=== PATIENT | female | born 1995 | race Caucasian/White ===

== ENCOUNTER 2021-02-22 08:49 | Outpatient (RCR) | payer BC, SELFPAY ==
[2021-02-22 08:58] VITALS: BMI 44.6
== END 2021-03-10 11:24 | disposition home or self-care (01) ==
LOC: ANHDMC 08:49
PROVIDERS: PCP Obstetrics & Gynecology; Visit Provider Obstetrics & Gynecology
DX: O09.90 Supervision of high risk pregnancy, unspecified, unspecified trimester (principal); E66.01 Morbid (severe) obesity due to excess calories; Z3A.00 Weeks of gestation of pregnancy not specified; Z71.3 Dietary counseling and surveillance
CPT/HCPCS: 97802

== ENCOUNTER 2021-03-16 10:21 | Outpatient (CLI) | payer BC, SELFPAY ==
[2021-03-16 11:45] LABS: Basophils Percent Auto 0.3 % (0.2-1.2); Eosinophils Absolute Auto 0.2 K/mm3 (0-0.3); Eosinophils Percent Auto 1.7 % (0-4.4); Hematocrit 37.4 % (37.0-47.0); Hemoglobin 12.7 g/dL (12.0-15.0); Immature Granulocyte Absolute 0.07 K/mm3 (0.00-0.031); Immature Granulocyte Percent A 0.6 % (0-0.5); Lymphocytes Absolute Auto 2.16 K/mm3 (0.9-3.2); Lymphocytes Percent Auto 18.5 % (18.3-44.2); Mean Corpuscular Hemoglobin 29.5 pg (26-34); Mean Corpuscular Volume 86.8 fl (80-100); Mean Platelet Volume 10.6 fl (7.4-10.4); Monocytes Absolute Auto 0.5 K/mm3 (0.1-0.6); Monocytes Percent Auto 4.6 % (2.6-8.5); Neutrophils Absolute Auto 8.7 K/mm3 (1.3-6.7); Neutrophils Percent Auto 74.3 % (45.5-73.1); Platelet Count Result 221 k/mm3 (150-375); Red Blood Count 4.31 M/mm3 (4.2-5.4); Red Cell Distribution Width 12.9 % (11.5-14.5); White Blood Count 11.7 K/mm3 (4.5-10.0)
[2021-03-16 11:54] LABS: Glucose 1 Hour PP 50gm Dose 174 mg/dL
[2021-03-16 13:27] LABS: Vitamin D 25 Hydroxy < 12.8 ng/mL
[2021-03-19 13:09] LABS: Varicella IgG Antibody <135.00 Index (>=165.00)
[2021-03-23 18:40] LABS: Hematocrit 39.5 % (35.0-45.0); Hemoglobin 12.7 g/dL (11.7-15.5); MCH 29.7 pg (27.0-33.0); MCV 92.4 FL (80.0-100.0); RDW 14.1 % (11.0-15.0); Red Blood Cell Count 4.27 Mill/uL (3.80-5.10)
== END 2021-03-16 10:22 | disposition home or self-care (01) ==
LOC: ANHLAB 10:23
PROVIDERS: PCP Obstetrics & Gynecology; Visit Provider Obstetrics & Gynecology
DX: Z34.90 Encounter for supervision of normal pregnancy, unspecified, unspecified trimester (principal)
CPT/HCPCS: 36415; 82306; 82947; 83021; 84443; 85025; 86787

== ENCOUNTER 2021-04-20 15:30 | Outpatient (RCR) | payer BC, SELFPAY | END 2021-06-13 09:58 | disposition home or self-care (01) | LOC: ANHOBOP 15:30 | PROVIDERS: PCP Obstetrics & Gynecology; Visit Provider Obstetrics & Gynecology | DX: O24.419 Gestational diabetes mellitus in pregnancy, unspecified control (principal); Z3A.32 32 weeks gestation of pregnancy | CPT/HCPCS: 59025 ==

== ENCOUNTER 2021-04-26 09:34 | Outpatient (CLI) | payer BC, SELFPAY ==
[2021-04-26 10:00] LABS: Basophils Percent Auto 0.2 % (0.2-1.2); Eosinophils Absolute Auto 0.2 K/mm3 (0-0.3); Hematocrit 36.3 % (37.0-47.0); Hemoglobin 12.4 g/dL (12.0-15.0); Immature Granulocyte Absolute 0.06 K/mm3 (0.00-0.031); Immature Granulocyte Percent A 0.5 % (0-0.5); Lymphocytes Absolute Auto 1.99 K/mm3 (0.9-3.2); Lymphocytes Percent Auto 17.5 % (18.3-44.2); Mean Corpuscular HGB Conc 34.2 g/dl (32-36); Mean Corpuscular Hemoglobin 29.2 pg (26-34); Mean Corpuscular Volume 85.6 fl (80-100); Mean Platelet Volume 10.6 fl (7.4-10.4); Monocytes Absolute Auto 0.9 K/mm3 (0.1-0.6); Monocytes Percent Auto 7.6 % (2.6-8.5); Neutrophils Absolute Auto 8.2 K/mm3 (1.3-6.7); Neutrophils Percent Auto 72.2 % (45.5-73.1); Platelet Count Result 211 k/mm3 (150-375); Red Blood Count 4.24 M/mm3 (4.2-5.4); Red Cell Distribution Width 12.4 % (11.5-14.5); White Blood Count 11.4 K/mm3 (4.5-10.0)
[2021-04-26 10:50] LABS: HIV 1/2 Ab P24 Ag Result Negative (Negative)
[2021-04-26 18:23] LABS: Rapid Plasma Reagin Non-Reactive (NonReactive)
== END 2021-04-26 09:35 | disposition home or self-care (01) ==
PROVIDERS: PCP Nurse Practitioner; Visit Provider Obstetrics & Gynecology
DX: Z34.90 Encounter for supervision of normal pregnancy, unspecified, unspecified trimester (principal)
CPT/HCPCS: 36415; 85025; 86592; 86703; G0432

== ENCOUNTER 2021-05-08 12:07 | Observation (INO) | payer BC, SELFPAY ==
[2021-05-08 12:32] VITALS: BP 122/55; PULSE 78
--- NOTE | 2021-05-08 12:45 | OBADM ---
This patient, Scotty Webb, admitted to the OB room OB Post 115 for observation. Patient/family oriented to hospital policies and general routines including ID bracelet, bed and alarms, visiting hours, pain management, procedures, bathroom and other care routines, personal items, smoking policy, room service/diet, and visiting hours. Patient/Family are encouraged to report perceived risks to care and to ask questions if they do not understand what they are told or what they should do.
[2021-05-08 12:46] VITALS: BP 118/54; PULSE 80
--- NOTE | 2021-05-08 13:25 | PC.NURSE ---
Dr Whitman notified of adm c/o cramping and swelling, sve being closed. Orders received.
[2021-05-08 13:28] VITALS: BMI 49.6
[2021-05-08] MEDS: NIFEdipine 10 MG CAPSULE PO (13:39)
[2021-05-08 14:04] LABS: Add Urine Microscopic? YES; Appearance Urine Cloudy (Clear); Bacteria Urine 3+ /hpf; Bilirubin Urine Negative (Negative); Blood Urine Negative (Negative); Color Urine Yellow (Yellow); Glucose Urine UA Negative (Negative); Ketones Urine 2+ mg/dL (Negative); Leukocyte Esterase Ur Trace LEU/UL (NEGATIVE); Mucus Urine Rare /lpf; Nitrate Urine Negative (Negative); Protein Urine 1+ mg/dL (Negative); Specific Grav Ur 1.016 (1.001-1.035); Squamous Epithelial Cell Urine Many /hpf (Few)
[2021-05-08 15:00] VITALS: RESP 20; TEMP 36.7
--- NOTE | 2021-06-23 10:22 | P.PNOB_ITS ---
OB - Triage/Final Diagnosis Visit Information Comments/Additional reasons for admission: I have assessed the risk for this patient, Scotty Webb, and determined that she would benefit from observation care. Evaluation Laboratory results: Laboratory Tests 05/08/21 13:41 Urine Color Yellow Urine Appearance Cloudy H Urine pH 6.0 Ur Specific [place] 1.016 Urine Protein 1+ H Urine Glucose (UA) Negative Urine Ketones 2+ H Ur Blood (Man) Negative Urine Nitrate Negative Urine Bilirubin Negative Urine Urobilinogen 2.0 H Ur Leukocyte Esterase Trace H Urine RBC 3-5 H Urine WBC 7-9 H Ur Squamous Epith Cells Many H Urine Bacteria 3+ H Urine Mucus Rare Final Diagnosis (1) Threatened labor: Code(s): O47.9 - False labor, unspecified Status: Acute
== END 2021-05-08 15:55 | disposition home or self-care (01) ==
PROVIDERS: Admitting Provider Obstetrics & Gynecology; PCP Nurse Practitioner; Visit Provider Obstetrics & Gynecology
DX: O47.9 False labor, unspecified (principal); Z3A.00 Weeks of gestation of pregnancy not specified
CPT/HCPCS: 81001; 87086; 87088; A9270; G0378; G0379

== ENCOUNTER 2021-05-25 14:15 | Observation (INO) | payer BC, SELFPAY ==
[2021-05-25 14:30] VITALS: BMI 48.7
--- NOTE | 2021-05-25 16:26 | OBADM ---
This patient, Scotty Webb, admitted to the OB room OB Post 113 for observation. Patient/family oriented to hospital policies and general routines including ID bracelet, bed and alarms, visiting hours, pain management, procedures, bathroom and other care routines, personal items, smoking policy, room service/diet, and visiting hours. Patient/Family are encouraged to report perceived risks to care and to ask questions if they do not understand what they are told or what they should do.
--- NOTE | 2021-05-29 10:25 | PM.OBTRLD ---
OB - Triage/Final Diagnosis Visit Information Comments/Additional reasons for admission: I have assessed the risk for this patient, Scotty Webb, and determined that she would benefit from observation care. Final Diagnosis (1) Antepartum variable deceleration: Code(s): O36.8390 - Maternal care for abnormalities of the heart rate or rhythm, unspecified trimester, not applicable or unspecified Status: Acute
== END 2021-05-25 16:25 | disposition home or self-care (01) ==
PROVIDERS: Admitting Provider Obstetrics & Gynecology; PCP Nurse Practitioner; Visit Provider Obstetrics & Gynecology
DX: O36.8390 Maternal care for abnormalities of the fetal heart rate or rhythm, unspecified trimester, not applicable or unspecified (principal); Z3A.00 Weeks of gestation of pregnancy not specified
CPT/HCPCS: G0378; G0379

== ENCOUNTER 2021-06-12 11:25 | Inpatient (IN) | payer BC, SELFPAY ==
[2021-06-12] VITALS (18 sets, daily range): BP systolic 118–145; BP diastolic 60–86; PULSE 72–92; TEMP 36.2–36.7
[2021-06-12 14:11] LABS: Basophils Percent Auto 0.3 % (0.2-1.2); Eosinophils Absolute Auto 0.2 K/mm3 (0-0.3); Eosinophils Percent Auto 2.3 % (0-4.4); Hematocrit 43.4 % (37.0-47.0); Hemoglobin 14.2 g/dL (12.0-15.0); Immature Granulocyte Absolute 0.05 K/mm3 (0.00-0.031); Immature Granulocyte Percent A 0.5 % (0-0.5); Lymphocytes Absolute Auto 1.89 K/mm3 (0.9-3.2); Lymphocytes Percent Auto 19.5 % (18.3-44.2); Mean Corpuscular HGB Conc 32.7 g/dl (32-36); Mean Corpuscular Volume 85.6 fl (80-100); Mean Platelet Volume 10.9 fl (7.4-10.4); Monocytes Absolute Auto 0.6 K/mm3 (0.1-0.6); Monocytes Percent Auto 6.1 % (2.6-8.5); Neutrophils Absolute Auto 6.9 K/mm3 (1.3-6.7); Neutrophils Percent Auto 71.3 % (45.5-73.1); Platelet Count Result 206 k/mm3 (150-375); Red Blood Count 5.07 M/mm3 (4.2-5.4); Red Cell Distribution Width 12.8 % (11.5-14.5); White Blood Count 9.7 K/mm3 (4.5-10.0)
[2021-06-12] MEDS: LACTATED RINGERS 1,000 ML 125 ML IV CONT ×2 (14:17→22:59)
[2021-06-12] MEDS: AMPICILLIN 2 GM/NS 100 ML 2 GM/100 ML BAG IVPB (14:18)
--- NOTE | 2021-06-12 14:22 | P.PNAN_ITS ---
Anes - Eval Pre Procedure Procedure: Labor epidural Date/Time: 06/12/21 14:22 Surgeon: soco Pre Op Diagnosis: Contractions Patient Data Age: 25 Gender: F Height: Weight: Last Vital Signs Temp 36.2 C L 06/12/21 14:20 Pulse 84 06/12/21 14:03 BP 118/60 06/12/21 14:03 Allergies Allergy/AdvReac Type Severity Reaction Status Date / Time No Known Allergies Allergy Verified 06/09/21 13:28 Home Medications Medication Instructions Recorded Confirmed Type acetaminophen 325 mg capsule 325 mg PO Q6H PRN 02/14/21 06/02/21 History calcium polycarbophil 625 mg tablet 1,250 mg PO DAILY 02/14/21 06/02/21 History prenat.vits,rachid,izz-ggjr-gcebi 1 tablet PO DAILY 03/09/21 06/02/21 History Laboratory Tests 06/12/21 06/12/21 14:00 14:00 WBC 9.7 K/mm3 K/mm3 (4.5-10.0) RBC 5.07 M/mm3 M/mm3 (4.2-5.4) Hgb 14.2 g/dL g/dL (12.0-15.0) Hct 43.4 % % (37.0-47.0) MCV 85.6 fl fl (80-100) MCH 28.0 pg pg (26-34) MCHC 32.7 g/dl g/dl (32-36) RDW 12.8 % % (11.5-14.5) Plt Count 206 k/mm3 k/mm3 (150-375) MPV 10.9 fl H fl (7.4-10.4) Immature Gran % (Auto) 0.5 % % (0-0.5) Neut % (Auto) 71.3 % % (45.5-73.1) Lymph % (Auto) 19.5 % % (18.3-44.2) [place] % (Auto) 6.1 % % (2.6-8.5) Eos % (Auto) 2.3 % % (0-4.4) Baso % (Auto) 0.3 % % (0.2-1.2) Lymph # (Auto) 1.89 K/mm3 K/mm3 (0.9-3.2) [place] # (Auto) 0.6 K/mm3 K/mm3 (0.1-0.6) Eos # (Auto) 0.2 K/mm3 K/mm3 (0-0.3) Baso # (Auto) 0.0 K/mm3 K/mm3 (0.0-0.1) Abs Immat Gran (auto) 0.05 K/mm3 H K/mm3 (0.00-0.031) Absolute Neuts (auto) 6.9 K/mm3 H K/mm3 (1.3-6.7) Absolute Nucleated RBC 0.0 K/mm3 K/mm3 (0.0-0.012) Nucleated RBC % 0.0 % % (0.0-0.2) RPR Pending Patient hx anesthesia problems: none Family hx anesthesia problems: none [facility] Past Medical History Medical History Anxiety Asthma GERD (gastroesophageal reflux disease) History of PCOS Migraine Family History Family History Mother Alcohol abuse Depression Grandparent Breast cancer Diabetes mellitus Hypertension Heart disease Social History Social History Smoking status: Former smoker Smoking end date: 08/25/20 Alcohol intake: never Substance use: former Last use: LAST TIME AT 18 WEEKS OF PREG Spiritual care concerns: No Exam Day of Procedure 06/12/21 14:22 Patient weight: normal Lungs: clear to auscultation and normal air movement Airway: Mallampati scale Neurological: alert and oriented
--- NOTE | 2021-06-12 14:24 | LDADM ---
This patient, Scotty Webb, was admitted to Labor/Delivery/Recovery 106 on 06/12/21 at 11:25. Plans for labor, pain management and were discussed with patient. Patient/family oriented to hospital policies and general routines including ID bracelet, bed and alarms, visiting hours, pain management, procedures, bathroom and other care routines, personal items, smoking policy, room service/diet and guest tray routines, security routines, and visiting hours. Patient/Family are encouraged to report perceived risks to care and to ask questions if they do not understand what they are told or what they should do. See OBIX for further documentation.
[2021-06-12] MEDS: OXYTOCIN 30 UNITS/NS 500 ML 30 UNITS/500 ML BAG 6 UNITS IV CONT (14:49)
[2021-06-12 16:02] LABS: Amphetamine Screen Urine Negative (Negative); Barbiturate Screen Urine Negative (Negative); Benzodiazepines Screen Urine Negative (Negative); Cannabinoid Screen Urine Negative (Negative); Cocaine Screen Urine Negative (Negative); Methadone Screen Urine Negative (Negative); Opiate Screen Urine Negative (Negative); Phencyclidine Screen Urine Negative (Negative)
[2021-06-12 17:23] LABS: Glucose Point of Care 124 mg/dl (65-105)
[2021-06-12] MEDS: AMPICILLIN 1 GM/NS 50 ML 1 GM/50 ML BAG IVPB ×2 (18:54→22:57)
[2021-06-12 18:57] LABS: Glucose Point of Care 78 mg/dl (65-105)
[2021-06-12] MEDS: CALCIUM CARBONATE (TUMS) 500 MG (200 MG ELEMENTAL) PO (21:00)
--- NOTE | 2021-06-12 22:33 | PM.IMHP ---
H&P: HPI History of Present Illness Date/Time: 06/12/21 22:33 Patient at 40 weeks today with an EDC 06/12/21 established by an 8 week 4 day ultrasound. It was not consistent with her periods which were irregular. Subsequent ultrasounds consistent with the EDC. PNC significant for diet control gestational diabetes though she has not been mostly compliant with bringing in the recordings of her blood sugars consistently. She has brought in her blood sugar readings once and they appeared controlled. She stated that most of her sugars have been in the normal range for fasting and postprandial. She did mention today that had two elevated postprandial after eating a high carb meal. The rest were normal. She states her fastings are usually in the 70s.She has been getting surveillance. She presented to L and D today with complaints of contractions starting this morning and questionable leaking. On L and D her cervix was 3 and did not change, she had irregular ctx and SROM check negative. I recommend induction of labor at term and gestational diabetes. Ultrasounds for growth have shown EFW appropriate for gestational age. History of marijuana use early prior . Chief Complaint: Induction of labor. Review of Systems Review of Systems: All systems reviewed & are unremarkable except as noted in HPI and below Constitutional: Constitutional: Reports no additional constitutional complaints and Denies headache(s) Eyes: Eyes: Denies spots in vision ENT: Reports system reviewed and no additional complaints, except as documented and Denies headache(s) Cardiovascular: Cardiovascular: Denies chest pain and Denies dyspnea Respiratory: Respiratory: Denies dyspnea Gastrointestinal: Gastrointestinal: Reports no additional gastrointestinal complaints Genitourinary: Genitourinary: Reports amenorrhea Musculoskeletal: Musculoskeletal: Reports no additional musculoskeletal complaints Integumentary/Breasts: Skin/Breast: Denies breast mass and Denies rash Neurologic: Denies headache(s) Psychiatric: Psychiatric: Reports no additional psychiatric complaints [facility] Past Medical History Medical History Anxiety Asthma GERD (gastroesophageal reflux disease) History of PCOS Migraine Family History Family History Mother Alcohol abuse Depression Grandparent Breast cancer Diabetes mellitus Hypertension Heart disease Social History Social History Smoking status: Former smoker Tobacco type: cigarettes Smoking end date: 08/25/20 Additional smoking assessment comments: also smoked marijuana for morning sickness but quit. Alcohol intake: never Substance use: former Last use: LAST TIME AT 18 WEEKS OF PREG Spiritual care concerns: No Meds Home Medications and Allergies Home Medications Medication Instructions Recorded Confirmed Type acetaminophen 325 mg capsule 325 mg PO Q6H PRN 02/14/21 06/02/21 History calcium polycarbophil 625 mg tablet 1,250 mg PO DAILY 02/14/21 06/02/21 History prenat.vits,rachid,rjs-[id number]-ejzdn 1 tablet PO DAILY 03/09/21 06/02/21 History Allergies Allergy/AdvReac Type Severity Reaction Status Date / Time No Known Allergies Allergy Verified 06/09/21 13:28 Vital Signs Vital Signs - 24 hr 06/12/21 14:03 06/12/21 14:20 06/12/21 15:01 Temperature 97.2 F L Pulse Rate 84 86 Blood Pressure 118/60 123/72 06/12/21 16:01 06/12/21 16:05 06/12/21 17:05 Temperature 97.3 F L Pulse Rate 92 75 Blood Pressure 141/86 H 145/86 H 06/12/21 18:01 06/12/21 18:41 06/12/21 19:34 Temperature 98.1 F Pulse Rate 77 76 Blood Pressure 139/84 139/78 06/12/21 20:01 06/12/21 20:31 06/12/21 21:01 Temperature Pulse Rate 85 85 81 Blood Pressure 135/80 138/75 132/81 06/12/21 21:31 06/12/21 22:01 06/12/21 22:31 Te
[2021-06-12 23:22] LABS: Glucose Point of Care 73 mg/dl (65-105)
[2021-06-13] VITALS (211 sets, daily range): BP systolic 93–176; BP diastolic 43–111; PULSE 57–122; RESP 18; TEMP 36.2–37.2; O2SAT 92–100; BMI 50.1
[2021-06-13] MEDS: AMPICILLIN 1 GM/NS 50 ML 1 GM/50 ML BAG IVPB ×5 (03:11→19:10)
[2021-06-13 03:15] LABS: Glucose Point of Care 74 mg/dl (65-105)
[2021-06-13 07:20] LABS: Glucose Point of Care 70 mg/dl (65-105)
[2021-06-13] MEDS: DEXTROSE 5%/LACTATED RINGERS 1,000 ML 100 ML IV CONT ×2 (08:59→09:54)
--- NOTE | 2021-06-13 09:17 | PM.OBPNVD ---
OB - PN: Subj Subjective Date/time seen: 06/13/21 09:17 Contractions every 3-4, mild when picking up the contractions which is positional, FHT 125 Cat 1, cervix 2.5/70/-2, AROM clear. Attempted IUPC, did not place since she did not tolerate well. She will want epidural and will place then if she is not progressing. OB - PN: Obj Data Labs CBC & Chem 7: 06/12/21 14:00 Labs: Laboratory Results - last 24 hr 06/12/21 06/12/21 06/12/21 13:56 14:00 14:00 WBC 9.7 RBC 5.07 Hgb 14.2 Hct 43.4 MCV 85.6 MCH 28.0 MCHC 32.7 RDW 12.8 Plt Count 206 MPV 10.9 H Immature Gran % (Auto) 0.5 Neut % (Auto) 71.3 Lymph % (Auto) 19.5 [place] % (Auto) 6.1 Eos % (Auto) 2.3 Baso % (Auto) 0.3 Lymph # (Auto) 1.89 [place] # (Auto) 0.6 Eos # (Auto) 0.2 Baso # (Auto) 0.0 Abs Immat Gran (auto) 0.05 H Absolute Neuts (auto) 6.9 H Absolute Nucleated RBC 0.0 Nucleated RBC % 0.0 POC Capillary Glucose 124 H Urine Opiates Screen Urine Methadone Screen Ur Barbiturates Screen Ur Phencyclidine Scrn Ur Amphetamine Screen U Benzodiazepines Scrn Urine Cocaine Screen U Cannabinoids Screen Blood Type A Positive Antibody Screen Negative 06/12/21 06/12/21 06/12/21 14:43 18:50 22:44 WBC RBC Hgb Hct MCV MCH MCHC RDW Plt Count MPV Immature Gran % (Auto) Neut % (Auto) Lymph % (Auto) [place] % (Auto) Eos % (Auto) Baso % (Auto) Lymph # (Auto) [place] # (Auto) Eos # (Auto) Baso # (Auto) Abs Immat Gran (auto) Absolute Neuts (auto) Absolute Nucleated RBC Nucleated RBC % POC Capillary Glucose 78 73 Urine Opiates Screen Negative Urine Methadone Screen Negative Ur Barbiturates Screen Negative Ur Phencyclidine Scrn Negative Ur Amphetamine Screen Negative U Benzodiazepines Scrn Negative Urine Cocaine Screen Negative U Cannabinoids Screen Negative Blood Type Antibody Screen 06/13/21 06/13/21 03:09 07:13 WBC RBC Hgb Hct MCV MCH MCHC RDW Plt Count MPV Immature Gran % (Auto) Neut % (Auto) Lymph % (Auto) [place] % (Auto) Eos % (Auto) Baso % (Auto) Lymph # (Auto) [place] # (Auto) Eos # (Auto) Baso # (Auto) Abs Immat Gran (auto) Absolute Neuts (auto) Absolute Nucleated RBC Nucleated RBC % POC Capillary Glucose 74 70 Urine Opiates Screen Urine Methadone Screen Ur Barbiturates Screen Ur Phencyclidine Scrn Ur Amphetamine Screen U Benzodiazepines Scrn Urine Cocaine Screen U Cannabinoids Screen Blood Type Antibody Screen OB - PN A/P Time Spent With Patient Time: Total time spent is greater than 50% in coordination of care (as documented) at patient's floor/unit and/or counseling patient:
[2021-06-13 11:09] LABS: Glucose Point of Care 159 mg/dl (65-105)
[2021-06-13] MEDS: LACTATED RINGERS 1,000 ML 125 ML IV CONT ×2 (11:16→19:10)
[2021-06-13 11:24] LABS: Rapid Plasma Reagin Non-Reactive (NonReactive)
[2021-06-13 15:15] LABS: Glucose Point of Care 66 mg/dl (65-105)
--- NOTE | 2021-06-13 16:36 | P.PNOB_ITS ---
OB - PN: Subj Subjective Date/time seen: 06/13/21 16:36 FHT 125-130 Cat 1, ctx q 2, cervix 6/90/-2, mild caput. Continue pitocin. OB - PN: Obj Data Labs CBC & Chem 7: 06/12/21 14:00 Labs: Laboratory Results - last 24 hr 06/12/21 06/12/21 06/12/21 13:56 14:00 18:50 POC Capillary Glucose 124 H 78 RPR Non-reactive 06/12/21 06/13/21 06/13/21 22:44 03:09 07:13 POC Capillary Glucose 73 74 70 RPR 06/13/21 06/13/21 11:06 15:10 POC Capillary Glucose 159 H 66 RPR OB - PN A/P Time Spent With Patient Time: Total time spent is greater than 50% in coordination of care (as docum ented) at patient's floor/unit and/or counseling patient:
[2021-06-13 17:09] LABS: Glucose Point of Care 75 mg/dl (65-105)
[2021-06-13 19:04] LABS: Glucose Point of Care 78 mg/dl (65-105)
[2021-06-13 21:05] LABS: Glucose Point of Care 87 mg/dl (65-105)
[2021-06-13] MEDS: ceFAZolin 3 GM/D5W 100 ML 100 ML IVPB (23:02)
[2021-06-14] VITALS (19 sets, daily range): BP systolic 109–134; BP diastolic 56–77; PULSE 65–102; RESP 15–18; TEMP 35.8–37.1; O2SAT 96–99
[2021-06-14] MEDS: KETOROLAC 30 MG/ML VIAL (*BKC) IV PUSH ×4 (00:02→21:14)
--- NOTE | 2021-06-14 00:49 | P.OPB_ITS ---
Procedure Note - Brief Procedure Note - Brief Date of procedure: 06/14/21 Pre-op diagnosis: Contractions Failure to descend Post-op diagnosis: same Procedure performed: Primary ceserean section Anesthesia: epidural Surgeon: Pedro Pablo Whitman MD Estimated blood loss (mL): 1,390 IV fluids (mL): 1,800 Drains: No Packing: No Pathology: yes (placenta and cord and cord blood) Complications: No immediate complications Condition: stable Disposition: floor Findings: Female infant, OP, 6lb 20z, normal fallopian tubes and ovaries. M econium stained light amniotic fluid.
--- NOTE | 2021-06-14 00:51 | PM.OBPNVD ---
OB - PN: Subj Subjective Date/time seen: 06/14/21 00:51 Patient pushed for one hour with good effort and contraction pattern and no change in station. Station remained at 0 after pushing. Caput noted. tracing with intermittent mild late decel, variability moderate. She was informed of diagnosis of failure to descend and recommendation for ceserean section and risk of continuing to push with no change. She was informed of risk of ceserean section. Questions answered. She agreed with primary cesearean section for failure to descend. OB - PN: Obj Data Labs CBC & Chem 7: 06/12/21 14:00 Labs: Laboratory Results - last 24 hr 06/12/21 06/13/21 06/13/21 14:00 03:09 07:13 POC Capillary Glucose 74 70 RPR Non-reactive 06/13/21 06/13/21 06/13/21 11:06 15:10 17:04 POC Capillary Glucose 159 H 66 75 RPR 06/13/21 06/13/21 19:01 20:57 POC Capillary Glucose 78 87 RPR OB - PN A/P Time Spent With Patient Time: Total time spent is greater than 50% in coordination of care (as documented) at patient's floor/unit and/or counseling patient:
[2021-06-14] MEDS: OXYTOCIN 30 UNITS/NS 500 ML 30 UNITS/500 ML BAG 125 UNITS IV CONT (01:27)
[2021-06-14] MEDS: DEXTROSE 5%/0.45% SOD CHL 1,000 ML 125 ML IV CONT ×2 (05:59→06:21)
--- NOTE | 2021-06-14 06:33 | PM.OBPNVD ---
OB - PN: Subj Subjective Date/time seen: 06/14/21 06:33 Patient comments: no complaints, pain well controlled, incisional pain and other (Lochia similar to menses. No N/V, hasn't had any po intake except ice/water) [place] baby status: doing well OB - PN: Obj Data Labs CBC & Chem 7: 06/12/21 14:00 Labs: Laboratory Results - last 24 hr 06/12/21 06/13/21 06/13/21 14:00 07:13 11:06 POC Capillary Glucose 70 159 H RPR Non-reactive 06/13/21 06/13/21 06/13/21 15:10 17:04 19:01 POC Capillary Glucose 66 75 78 RPR 06/13/21 20:57 POC Capillary Glucose 87 RPR OB - PN A/P Plan day: 1 (s/p C section, doing well) Plan: routine care Time Spent With Patient Time: Total time spent is greater than 50% in coordination of care (as documented) at patient's floor/unit and/or counseling patient: Time with patient: less than 15 minutes Exam Const: General: no acute distress Resp: Auscultation: clear to auscultation bilaterally Cardio: Rate: regular rate Rhythm: regular rhythm GI: Inspection: non-distended, incision (Intact without erythema, drainage, or induration) and other (Fundus firm and nontender at umbilicus) GI Palp: Yes abdominal tenderness (appropriate ) and Yes Soft to palpation Extrem: General: no calf tenderness and no edema
[2021-06-14] MEDS: MULTIVIT/MIN/PREN/FOL AC/IRON TABLET 1 TAB PO (10:05)
[2021-06-14] MEDS: DOCUSATE SODIUM 100 MG CAPSULE PO (10:06)
--- NOTE | 2021-06-14 10:51 | WPDANLDPN2 ---
Anes-Prog Note L&D Date/Time: 06/14/21 10:51 Comfortable throughout: section Neuraxial method: spinal Epidural/Spinal procedure site: clean & non-tender Neuro status: Neuro function grossly intact. Cardiovascular status: normal Respiratory status: normal Airway patency: baseline Mental status: baseline Post-Op hydration status: normal Vital Signs: Last Vital Signs Temp 35.8 C L 06/14/21 03:30 Pulse 65 06/14/21 03:30 Resp 15 06/14/21 03:30 BP 134/77 06/14/21 03:30 Pulse Ox 97 06/14/21 03:30 Pain score (VAS): 0 I/O: Intake & Output 06/13/21 06/14/21 06/14/21 23:59 07:59 15:59 Intake Total 1150 1400 Output Total 1890 128 Balance -740 1272 Post-procedural complaints: none Patient feedback: Patient satisfied with anesthetic care.
--- NOTE | 2021-06-14 10:51 | WPDANLDNPN2 ---
Anes-Prog Note L&D-Neuraxial Date/Time: 06/14/21 10:51 Neuraxial medications: intrathecal PF morphine Patient feedback: Patient satisfied with post-operative pain management.
--- NOTE | 2021-06-14 13:55 | PC.NURSE ---
Mother called out for assist with feeding, reporting has been bottle fed, this is the first time to breast. is able to freely thrust tongue past gum ridge and flange both lips. Skin is intact on both nipples, no redness and bruising noted. Discussed infant is accustom to large amounts of formula and may not be satisfied with smaller amounts of colostrum. Suggested to put infant to breast each feeding then supplement. Reviewed feeding cues, frequencies, duration of feedings, feeding elimination flow sheet, and signs of adequate intake. Demonstrated stimulation techniques to wake for feeding. Assisted with infant to breast. Reviewed positioning/alignment in football, holding breast in ?C? hold and guided asymmetrical latch on. Discussed rational for each. Within a few attempts, able to latch correctly. Infant nursed eagerly, with steady draws and occasional swallowing noted. Suggested mother stimulate while feeding to increase stimulate, increase intake and to assist with maintaining deep latch. Reviewed signs of a correct latch, effective nursing and suck swallow ratio. Infant would slip to shallow latch, mother reports tenderness. Demonstrated how to adjust latch more deeply while feeding. Mother reports she can feel change in latch and has no tenderness. Nipple care reviewed of lanolin after feedings, warm compresses as needed. Instructed mother to call out for RN assistance if she is unable to latch infant for feeding or she has discomfort with nursing.
--- NOTE | 2021-06-14 15:50 | PC.NURSE ---
Mother called out for assist with feeding. Assisted with to breast. Reviewed positioning/alignment in cross cradle, holding breast in ?U? hold and guided asymmetrical latch on. Discussed rational for each. Infant able to latch correctly. Infant nursed eagerly, with steady draws and frequent swallowing noted. Suggested mother stimulate while feeding to increase stimulate, increase intake and to assist with maintaining deep latch. Reviewed signs of a correct latch, effective nursing and suck swallow ratio. was able to maintain latch without discomfort to mother. Demonstrated how to adjust latch more deeply while feeding. Nipple care reviewed of lanolin after feedings, warm compresses as needed. Instructed mother to call out for RN assistance if she is unable to latch infant for feeding or she has discomfort with nursing.
--- NOTE | 2021-06-14 16:33 | W.PM.PROC2 ---
Procedure Note - Detailed Date of Procedure 06/14/21 Pre-op Diagnosis failure to descend Post-op Diagnosis same Procedure Performed primary low-transverse section. Surgeon Pedro Pablo Whitman MD Anesthesia epidural Indications Patient is a 25-year-old admitted for medical induction of labor on . At that time she had come in for labor check and her cervix had not changed she was called at 3 cm and had not change. Her course is significant for gestational diabetes and she was recommended for induction of labor at 39-40 weeks she agreed to stay for induction of labor. Pitocin was started. She had irregular contractions on the morning of 06/13 she had assisted rupture of membranes. She was continued on Pitocin for induction. She did get an IUPC placed to better monitor the contractions and adjust her Pitocin. Her dilation was progressing throughout labor. She did dilate to complete. Initially with pushing she did have some deep variable decelerations. Variability was good after recovery. She was having good pushing effort. there was a 10 minutes time. Where she did not push due to pain. Her epidural was re-dosed. She then resumed pushing after this during her pushing she has intermittent late this onset Variables. She was afebrile. She pushed for an hour and there was no change in her station which was 0 and caput was present. She was informed of her diagnosis of failure to descend and risk of continuing to attempt pushing discussed risk of section and she agreed to the primary section for failure to descend. Findings Female infant 6 lb 2 oz in OP position then meconium noted with entry in the amniotic cavity. Normal fallopian tubes and ovaries bilaterally. small mid pelvis noted. Description of Procedure After informed consent, risks and benefits of the procedure was discussed with the patient. The patient was taken to the operating room where she was placed in the dorsal lithotomy position with leftward tilt. Her epidural was re-dosed and which was found to be adequate, she was then prepped and draped in the usual sterile fashion. A Pfannenstiel skin incision was made with a scalpel and carried through to the underlying layer of fascia. The fascia was then nicked in the midline, extending bilaterally with Del Castillo scissors.. The fascia was dissected off the rectus muscles Superiorly and inferiorly bluntly and using cautery. The rectus muscles were in the midline, and peritoneum was identified, entered bluntly. The pelvic organs were visualized. The bladder blade was then inserted. The uterine incision was then made 3 cm above the vesicouterine peritoneum reflection with the scalpel and extended with bilateral index fingers in a crescent-shaped fashion. The amniotic cavity was entered. Meconium stain fluid was noted. the head which was in the OP position was delivered. The rest of the infant was delivered.The cord was clamped and cut. The infant was then handed off to the awaiting pediatric staff. The placenta was then Delivered manually. The uterine cavity was sponge curetted. there was noted to be an inferior laceration of the incision in the middle of the incision and this was closed with 0 Vicryl. This was done in a running locking fashion. The laceration did not extend to the bladder. The rest of the of the uterine incision was closed in a running locking fashion with 0 Vicryl a 2nd imbricating stitch of 0 Vicryl was used hemostasis was noted. The bladder was then filled with methylene blue-stained fluid and no methylene blue stained fluid was noted in the pelvis. The uterine tone had improved with uterine massage and IV Pitocin. The posterior cul-de-sac was irrigated. The pericolic gutters were irrigated. The uterus was placed back into the abdomen the incision inspected again and noted to be hemostatic. Interceed was placed over the incision horizontally and vertical
[2021-06-14] MEDS: HYDROcodone/acetaminophen (*CRX) 5-325 MG TABLET 1 TAB PO (21:22)
[2021-06-15 00:05] VITALS: O2SAT 99
[2021-06-15] MEDS: HYDROcodone/acetaminophen (*CRX) 5-325 MG TABLET 1 TAB PO ×4 (05:00→21:57)
[2021-06-15 05:53] LABS: Basophils Percent Auto 0.3 % (0.2-1.2); Eosinophils Absolute Auto 0.2 K/mm3 (0-0.3); Eosinophils Percent Auto 1.5 % (0-4.4); Hematocrit 30.7 % (37.0-47.0); Hemoglobin 9.9 g/dL (12.0-15.0); Immature Granulocyte Absolute 0.06 K/mm3 (0.00-0.031); Immature Granulocyte Percent A 0.5 % (0-0.5); Lymphocytes Absolute Auto 2.13 K/mm3 (0.9-3.2); Lymphocytes Percent Auto 16.5 % (18.3-44.2); Mean Corpuscular HGB Conc 32.2 g/dl (32-36); Mean Corpuscular Hemoglobin 27.6 pg (26-34); Mean Corpuscular Volume 85.5 fl (80-100); Mean Platelet Volume 11.1 fl (7.4-10.4); Monocytes Absolute Auto 0.8 K/mm3 (0.1-0.6); Monocytes Percent Auto 6.3 % (2.6-8.5); Neutrophils Absolute Auto 9.7 K/mm3 (1.3-6.7); Neutrophils Percent Auto 74.9 % (45.5-73.1); Platelet Count Result 202 k/mm3 (150-375); Red Blood Count 3.59 M/mm3 (4.2-5.4); Red Cell Distribution Width 12.9 % (11.5-14.5); White Blood Count 12.9 K/mm3 (4.5-10.0)
[2021-06-15 08:15] VITALS: PULSE 101; RESP 18; O2SAT 99
--- NOTE | 2021-06-15 08:20 | PC.NURSE ---
Mother called out for assist with feeding. Mother is tearful reporting she has made several attempts and unable to latch. Infant crying and fussy. Suggested mother give a few drops of formula to calm and then attempt. Assisted with to breast. Reviewed positioning/alignment in cross cradle, holding breast in ?U? hold and guided asymmetrical latch on. Discussed rational for each. able to latch correctly within a few attempts. Infant nursed eagerly, with steady draws and frequent swallowing noted. Suggested mother stimulate while feeding to increase stimulate, increase intake and to assist with maintaining deep latch. Reviewed signs of a correct latch, effective nursing and suck swallow ratio. was able to maintain latch without discomfort to mother. Demonstrated how to adjust latch more deeply while feeding. Nipple care reviewed of lanolin after feedings, warm compresses as needed. Mother will continue to supplement after each feeding by choice. Discussed initiating pumping today, mother has her pump from home and will call out when ready. Instructed mother to call out for RN assistance if she is unable to latch for feeding or she has discomfort with nursing.
[2021-06-15 08:55] VITALS: BP 124/66; PULSE 101; RESP 18; TEMP 36.9; O2SAT 99
[2021-06-15] MEDS: POLYSACCHARIDE IRON COMPLEX 150 MG CAPSULE PO ×2 (10:49→17:20)
[2021-06-15] MEDS: DOCUSATE SODIUM 100 MG CAPSULE PO (10:49)
[2021-06-15] MEDS: MULTIVIT/MIN/PREN/FOL AC/IRON TABLET 1 TAB PO (10:49)
[2021-06-15] MEDS: IBUPROFEN 600 MG TABLET PO ×2 (10:51→17:19)
--- NOTE | 2021-06-15 11:00 | PC.NURSE ---
Mother wishes to use her pump from home. Instructions given on breast pump care and usage, pumping schedule, nipple care, and collection and storage of breast milk. Encouraged [id number], breast massage and manual expression to stimulate supply. Assessed patient for correct flange size, placement and draw. Patient verbalizes and demonstrates understanding of instructions.
--- NOTE | 2021-06-15 17:36 | PC.NURSE ---
Patient viewed the discharge video Mother & Baby Care, The First Two Weeks . Patient was given the opportunity and encouraged to ask questions. Patient verbalized understanding of information shared and has been given the mother/baby guide for home reference.
[2021-06-15 21:45] VITALS: BP 122/72; PULSE 94; RESP 16; TEMP 36.6; O2SAT 97
[2021-06-16] MEDS: HYDROcodone/acetaminophen (*CRX) 5-325 MG TABLET 1 TAB PO ×2 (02:45→08:08)
[2021-06-16] MEDS: IBUPROFEN 600 MG TABLET PO ×2 (02:45→08:07)
[2021-06-16] MEDS: LANOLIN (LANSINOH) 7.5 GM CREAM 1 APPLIC TOPICAL (02:46)
--- NOTE | 2021-06-16 07:30 | PC.NURSE ---
PT introductions made and plan of care discussed per post op c section, pain management, breast feeding, daily care activities and pending discharge to home. PT received such instructions per one to one discussion, mom baby care guide and demonstration, No barriers to learning identified and both pt and fob received such instructions,. PT verbalized understanding of such care.
--- NOTE | 2021-06-16 08:03 | PM.OBPNVD ---
OB - PN: Subj Subjective Date/time seen: 06/16/21 08:03 Patient comments: no complaints, pain well controlled, tolerating diet, flatus present and other (Lochia less than menses. Ambulating and voiding without problems) baby status: doing well OB - PN: Obj Data Labs CBC & Chem 7: 06/15/21 05:00 OB - PN A/P Plan day: 3 (s/p section, doing well and ready to be discharged home) Plan: routine care, discharge home and other (Follow up in office in 2 weeks) Time Spent With Patient Time: Total time spent is greater than 50% in coordination of care (as documented) at patient's floor/unit and/or counseling patient: Time with patient: less than 15 minutes Exam Const: General: no acute distress Resp: Auscultation: clear to auscultation bilaterally Cardio: Rate: regular rate Rhythm: regular rhythm GI: Inspection: non-distended, incision (Intact without erythema, drainage, or induration) and other (Fundus firm and nontender below umbilicus) GI Palp: Yes abdominal tenderness (appropriate) and Yes Soft to palpation Extrem: General: no edema
--- NOTE | 2021-06-16 08:04 | PM.OBDSVD ---
DS: Admitting Diagnosis Admitting Diagnosis Induction of labor, gestational diabetes DS: Discharge Diagnosis Discharge Diagnosis (1) delivery delivered: Code(s): O82 - Encounter for delivery without indication Status: Acute OB - DS: Summary OB Procedures : None OB Procedures Intrapartum: low cervical, transverse OB Procedures: : None Peripartum Data Delivery Method: Section Procedures: Procedures Operation Date: 06/13/21 23:00 Actual Procedure Side Surgeon p Section Bilateral Pedro Pablo Whitman MD complications: none Status at Discharge Functional status at discharge: independent ambulation Overall status at discharge: patient is progressing back to baseline Time Spent with Patient Time attestation: Total time spent providing and/or coordinating discharge services: Time spent: Less than 30 minutes DS: Data Data Completed and Pending Pending studies at discharge: Pending at discharge 06/13/21 23:28 Surgical [PTH] Routine Discharge Plan Discharge Attending physician on discharge: Pedro Pablo Whitman Discharging Clinician: Faye Zurita Patient Disposition: Home, Self-Care Activity: may shower and pelvic rest Diet: regular Wound Care Instructions: incision open to air Discharge Instructions: Education: Mom and Baby Guide Given to: Follow-Up: Call your delivering provider's office for an appointment to be seen in: Mom and baby should come to the [facility] for the follow-up appointment. Appointment Date/Time: at SaturdayJune 19 @ 1100 What to expect at your follow-up visit: Blood pressure check Call [phone] if you are unable to keep your appointment time. BREAST CARE: * Wear a snug supportive bra. * For engorgement discomfort: Breast Feeding: * Apply warm moist washcloths * Express milk as needed to relieve engorgement * Wear loose clothing Bottle Feeding: * May apply ice packs * For sore nipples: * Identify correct latch-on * Apply warm moist washcloths before and after nursing * Air dry nipples after nursing * May apply Lansinoh cream to nipples ABDOMINAL INCISION: (if applicable) * Allow incision to air dry * Do NOT use lotions for powders on your incision * When showering, allow soap and water to run over the incision, but do not wash incision PERINEAL CARE: * Until bleeding stops, use your lucille bottle after urinating * Change your pad frequently throughout the day * No tub baths until seen by your physician - You may shower ACTIVITY: * Rest as much as possible. * Do not exercise or lift anything heavier than your baby (such as laundry or other children.) * Avoid stairs or driving as much as possible. * Do not put anything into the vagina. No douching, tampons, or sexual activity until seen by physician. NOTIFY PHYSICIAN IF YOU HAVE ANY QUESTIONS OR IF ANY OF THE FOLLOWING SYMPTOMS OCCUR: * If your incision becomes red, swollen, or more painful than what you have experienced in the hospital. * If your vaginal bleeding becomes foul smelling. * If your vaginal bleeding becomes more heavy than a period or if your bleeding changes from pink to bright red. However, you may pass an occasional walnut-sized clot once or twice for the first week . * If you experience a sharp, shooting pain in you calves. * If you discover a hard, reddened area on your breast or if you experience flu-like symptoms. * If you have a fever of 100.4 or greater DIET: * Eat regular, well-balanced meals. * Drink plenty of fluids daily. If , drink to thirst. Patient Instructions: Antibiotic Form Stand Alone Forms: General Discharge Information Follow-up/Referrals: Pedro Pablo Whitman MD [Physician] - 2 Weeks Discharge Medications: New
[2021-06-16] MEDS: DOCUSATE SODIUM 100 MG CAPSULE PO (08:06)
[2021-06-16] MEDS: CALCIUM CARBONATE (TUMS) 500 MG (200 MG ELEMENTAL) PO (08:06)
[2021-06-16] MEDS: MULTIVIT/MIN/PREN/FOL AC/IRON TABLET 1 TAB PO (08:06)
[2021-06-16] MEDS: SIMETHICONE 80 MG TAB.CHEW PO ×2 (08:06→12:23)
[2021-06-16] MEDS: POLYSACCHARIDE IRON COMPLEX 150 MG CAPSULE PO (08:08)
[2021-06-16 08:10] VITALS: BP 104/62; PULSE 88; RESP 16; TEMP 36.5; O2SAT 100
[2021-06-16 08:15] VITALS: PULSE 88; RESP 16; O2SAT 100
--- NOTE | 2021-06-16 09:15 | PC.NURSE ---
Consult with pt., mother reports she continues to put to breast most feedings. is nursing eagerly with long draw and occasional swallowing noted. Mother feels she is more comfortable with independently latching to breast and getting infant to maintain latch. Mother will continue to supplement until her milk supply is well established and is consistent with effective nursing. Mother is pumping without difficulties or discomfort, she is now pumping small drops with each session. Mother voices concern with volume pumped, reviewed milk should transition in within a few days. Mother is able to independently latch infant with appropriate positioning/alignment. She denies any nipple discomfort, is feeding as required and waking infant to feed if needed. Infant has had several effective feedings followed with supplementation in the past 24 hours, and is currently meeting outcomes for weight, output, jaundice and feeding frequencies. Mother states she feels confident to continue current feeding plan of breast/bottle/ pump at home. Discussed to increase supplementation as desires, with increased supplement may not want to feed for 4 hours. Mother should continue to pump on infant feeding schedule and to increase time to 20 minutes. Reviewed signs infant may want to decrease supplementation, advised not to discontinue supplement until ICP, follow up or has a pre/post weight feeding evaluation. Reviewed transition to breast milk, signs of adequate intake, and engorgement/relief. Instructed to call ICP if intake/output less than required. Reviewed regular medications mother is taking. Information provided per [facility]. Reviewed community resources on the [employer] website and in the Mom/Baby guide. Information on outpatient services provided. Mother has no further questions at this time.
[2021-06-16] MEDS: HYDROcodone/acetaminophen (*CRX) 10-325 MG TABLET 1 TAB PO (12:23)
--- NOTE | 2021-06-16 12:45 | PC.NURSE ---
PT received discharge instructions per protocol and verbalized understanding of such instructions.
--- NOTE | 2021-06-16 13:12 | PC.NURSE ---
PT discharged to home ambulatory accompanied by spouse and to waiting car. Follow up appts confirmed
[2021-06-19 11:29] VITALS: BP 115/67; PULSE 93; RESP 20; TEMP 37.2; O2SAT 100
== END 2021-06-16 13:12 | disposition home or self-care (01) | DRG 788 ==
LOC: ANHOB2 06-16 11:57 → ANHLDR 06-19 15:20 → ANHOB2 06-19 15:20
PROVIDERS: Admitting Provider Obstetrics & Gynecology; PCP Nurse Practitioner; Visit Provider Obstetrics & Gynecology
PROC: 10907ZC Drainage of Amniotic Fluid, Therapeutic from Products of Conception, Via Natural or Artificial Opening (ICD-10-PCS; CPT 59514; principal; 2021-06-13 23:00)
DX: O24.420 Gestational diabetes mellitus in childbirth, diet controlled (principal); Z37.0 Single live birth; Z3A.40 40 weeks gestation of pregnancy; O99.824 Streptococcus B carrier state complicating childbirth; O99.52 Diseases of the respiratory system complicating childbirth; J45.909 Unspecified asthma, uncomplicated; O99.62 Diseases of the digestive system complicating childbirth; K21.9 Gastro-esophageal reflux disease without esophagitis; O99.344 Other mental disorders complicating childbirth; F41.9 Anxiety disorder, unspecified; O36.8330 Maternal care for abnormalities of the fetal heart rate or rhythm, third trimester, not applicable or unspecified; O32.4XX0 Maternal care for high head at term, not applicable or unspecified
CPT/HCPCS: 36415; 80307; 82948; 84112; 85025; 86592; 86850; 86900; 86901; 88307; A9270; J0131; J0290; J0690; J1100; J1885; J2274; J2405; J2590; J2704; J2795; J3010; J7120; J7121; Q9968

== ENCOUNTER 2021-06-29 12:13 | Emergency (ER) | payer BC, SELFPAY ==
--- NOTE | ~2021-06-29 | US_ITS ---
EXAMINATION: US guide abscess drainage DATE: 06/29/2021 18:20 INDICATION: Lower abdominal wall abscess. TECHNIQUE: The procedure including the risks, benefits, and alternatives was discussed with the patie nt. Risks discussed included bleeding including bleeding and infection. Oral and written consent were obtained. A timeout was performed to verify the patient's name, date of , and procedure to b e performed. The skin overlying the low anterior abdominal wall was prepped and draped in usual steri le fashion. Anesthetic was administered with 1% lidocaine subcutaneously. An 8.5 Fr catheter was in serted into the abdominal wall abscess by trocar technique. The metal stiffener and trocar needle wer e removed, and the pigtail tip was locked. Fluid was aspirated and sent for culture. The catheter was stitched to the skin with suture. There were no immediate complications. FINDINGS: Ultrasound images demonstrate the catheter within the low anterior abdominal wall abscess. 20 mL orange fluid was aspirated. IMPRESSION: 1. Successful ultrasound-guided abdominal wall abscess drainage. 2. 20 mL orange fluid was sent for aerobic and anaerobic cultures. Reviewed, dictated and finalized at location A.
--- NOTE | ~2021-06-29 | CT_ITS ---
EXAMINATION: CT abdomen pelvis w con DATE: 06/29/2021 14:04 INDICATION: Abdominal cellulitis TECHNIQUE: Computed tomography (CT) of the abdomen and pelvis was performed with 100 cc Omnipaque 350 intravenous contrast. Automated exposure control and iterative reconstruction technique were employe d. Exam dose: 1529.99 mGy-cm total exam DLP. COMPARISON: None. FINDINGS: The lung bases are clear. Heart size normal. No pericardial or pleural effusion. The liver, gallbladder, bile ducts, pancreas and pancreatic duct and adrenal glands appear normal. Th ere is mild splenomegaly. Spleen measures approximately 14.5 cm vertical dimension. No renal mass lesion is evident. There is minimal hydronephrosis of the kidneys. Normal caliber of th e abdominal aorta. No intraperitoneal or retroperitoneal or pelvic mass lesion or adenopathy or ascit es. The urinary bladder is distended. uterus is noted. There is mild fluid density in the endometrial cavity. Normal appendix. No bowel obstruction, bowel wall thickening, pneumatosis or intraperitoneal free air . Approximately 12.5 cm wide up to 2.2 cm anteroposterior dimension fluid collection is noted in the lo wer anterior pelvic wall, possibly hematoma or seroma. There is overlying skin thickening. There is s oft tissue stranding of the subcutaneous adipose tissues of the abdominal and particularly anterior p elvic wall. Included skeletal structures are unremarkable. IMPRESSION: Hematoma or seroma of the anterior pelvic wall Skin thickening and subcutaneous fat soft tissue infiltration of the abdominal and pelvic wall uterus Mild splenomegaly Reviewed, dictated and finalized at Location A. Reviewed, dictated and finalized at location B.
[2021-06-29 12:15] VITALS: BP 127/80; PULSE 84; RESP 18; TEMP 36.2; O2SAT 99
--- NOTE | 2021-06-29 12:27 | ED.ABDPAIN ---
HPI - Abdominal Pain General Chief Complaint: Wound/Laceration Stated Complaint: abd pain Time Seen by Provider: 06/29/21 12:26 History of Present Illness HPI narrative: Patient is a 25-year-old female who comes to the ED today with concern about a rash around her site. Patient reports that she had a on 06/13/2021. Since then she has had worsening pain and edema and redness around the incision site. She has been followed by her FRONT END ENGINEER, was started on Keflex on 06/20/2021. Clindamycin was added on 2 days ago. Last night she developed itching and what looks like hives in both ankles, she took some Benadryl and these are much improved. When she woke up this morning she noticed some blistering of the abdominal wound and worsening pain prompting her to come to the emergency room. She denies any fevers, vomiting or any systemic symptoms. Rates pain as 8/10 in severity. Still having vaginal bleeding since the , changing a pad about every 3 hours. Related Data Home Medications Medication Instructions Recorded Confirmed acetaminophen 325 mg capsule 325 mg PO Q6H PRN 02/14/21 06/24/21 calcium polycarbophil 625 mg tablet 1,250 mg PO DAILY 02/14/21 06/24/21 prenat.vits,rachid,gyp-baxc-ivefm 1 tablet PO DAILY 03/09/21 06/24/21 Allergies Allergy/AdvReac Type Severity Reaction Status Date / Time No Known Allergies Allergy Verified 06/29/21 12:20 Review of Systems Constitutional: Constitutional: Reports as per HPI, Denies fever(s), Denies night sweats and Denies weakness Cardiovascular: Cardiovascular: Denies chest pain, Denies edema, Denies leg edema, Denies dyspnea and Denies orthopnea Respiratory: Respiratory: Denies cough and Denies dyspnea Gastrointestinal: Gastrointestinal: Denies abdominal pain, Denies constipation, Denies diarrhea, Denies nausea and Denies vomiting Musculoskeletal: Musculoskeletal: Denies abnormal gait, Denies back pain, Denies numbness and Denies tingling Integumentary/Breasts: Skin/Breast: Reports wounds Comments: See HPI Neurologic: Denies Abnormal speech present, Denies abnormal gait, Denies numbness, Denies tingling and Denies weakness Psychiatric: Psychiatric: Denies homicidal ideation and Denies suicidal ideation [facility] Past Medical History Medical History Anxiety Asthma GERD (gastroesophageal reflux disease) History of PCOS Migraine Family History Family History Mother Alcohol abuse Depression Grandparent Breast cancer Diabetes mellitus Hypertension Heart disease Social History Social History Smoking status: Former smoker Tobacco type: cigarettes Smoking end date: 08/25/20 Additional smoking assessment comments: also smoked marijuana for morning sickness but quit. Alcohol intake: never Substance use: former Last use: LAST TIME AT 18 WEEKS OF PREG Gender identity (if verbalized by the patient): Female Spiritual care concerns: No Exam Narrative: Pleasant, no distress Const: General: cooperative, healthy appearing, comfortable, no acute distress, well developed, alert, awake and Physically active Orientation/consciousness: patient oriented x3 HENMT: Head: normal to inspection, normocephalic and atraumatic Ears: external ears normal General nose exam: Normal external nose present Eyes: Pupils: Equal, round and reactive pupils present EOM: EOMs intact bilaterally Neck: Neck: normal visual inspection Chest: Chest palpation & inspection: normal inspection of the chest and no tenderness Resp: Effort & Inspection: normal respiratory effort and able to speak in complete sentences Auscultation: clear to auscultation bilaterally Cardio: Rate: regular rate Rhythm: regular rhythm GI: Inspection: normal to inspection GI Palp: No abdominal tenderness Othe
[2021-06-29 12:34] VITALS: BP 126/69; PULSE 87; RESP 16; O2SAT 100
[2021-06-29 12:53] LABS: Basophils Absolute Auto 0.1 K/mm3 (0.0-0.1); Basophils Percent Auto 0.5 % (0.2-1.2); Eosinophils Absolute Auto 0.5 K/mm3 (0-0.3); Hematocrit 33.2 % (37.0-47.0); Hemoglobin 10.7 g/dL (12.0-15.0); Immature Granulocyte Absolute 0.03 K/mm3 (0.00-0.031); Immature Granulocyte Percent A 0.3 % (0-0.5); Lymphocytes Absolute Auto 2.17 K/mm3 (0.9-3.2); Lymphocytes Percent Auto 23.3 % (18.3-44.2); Mean Corpuscular HGB Conc 32.2 g/dl (32-36); Mean Corpuscular Hemoglobin 27.2 pg (26-34); Mean Corpuscular Volume 84.3 fl (80-100); Mean Platelet Volume 10.2 fl (7.4-10.4); Monocytes Absolute Auto 0.7 K/mm3 (0.1-0.6); Neutrophils Absolute Auto 5.9 K/mm3 (1.3-6.7); Neutrophils Percent Auto 63.9 % (45.5-73.1); Platelet Count Result 446 k/mm3 (150-375); Red Blood Count 3.94 M/mm3 (4.2-5.4); Red Cell Distribution Width 12.5 % (11.5-14.5); White Blood Count 9.3 K/mm3 (4.5-10.0)
[2021-06-29] MEDS: KETOROLAC 15 MG/ML VIAL (*BKC) IV PUSH (13:16)
[2021-06-29 13:43] LABS: Anion Gap 5 mmol/L (8-16); Blood Urea Nitrogen 11 mg/dL (7-17); Calcium 9.6 mg/dL (8.4-10.2); Carbon Dioxide 28 mmol/L (22-30); Chloride 104 mmol/L (98-107); Estimated CRCL calculation 126 ml/min; Estimated Glomerular Filt Rate > 60; Glucose 91 mg/dL (65-110); Potassium 4.6 mmol/L (3.4-5.0); Sodium 137 mmol/L (137-145)
--- NOTE | 2021-06-29 16:41 | WPDCN ---
Assessment and Plan Assessment and plan (1) Postoperative wound cellulitis: Code(s): T81.49XA - Infection following a procedure, other surgical site, initial encounter Status: Acute Assessment and Plan: pt with abdominal wall cellulitis large abdominal wall fluid collection noted on imaging, ? hematoma vs. seroma incision well healing patient is afebrile without signs of systemic infection recommend US guided drainage of fluid collection radiology notified will increase clindamycin to 300mg Q6H and extend treatment for additional 7 days, Rx sent to pharmacy plan of care discussed with patient patient may be discharged home in stable condition following drainage emergency precautions reviewed pt advised to call office tomorrow to schedule follow up visit on 07/03/21 all questions and concerns addressed HPI Data of Consult Date/Time: 06/29/21 16:41 Primary Care Provider: Sarah Onofre, SANDBLAST OPERATOR Consult Narrative Narrative: Scotty Webb is a 25 year old status post primary section on 06/14/2021. Patient developed cellulitis postoperatively and was started on antibiotic therapy. Patient has been compliant with antibiotic therapy. Plan was to complete CT scan outpatient in a few days, however, this morning, her noticed blistering of skin in dependent area of pannus prompting visit to the emergency department. Patient states that her abdomen has become more swollen, tender, red, and hard over past few days. She denies any fever, chills, nausea, or vomiting. Incision is intact and patient denies any drainage or bleeding from incision. Review of Systems Constitutional: Constitutional: Reports as per HPI, Reports no additional constitutional complaints, Denies chills and Denies fever(s) Cardiovascular: Cardiovascular: Reports as per HPI, Reports no additional cardiovascular complaints and Denies chest pain Respiratory: Respiratory: Reports as per HPI, Reports no additional respiratory complaints and Denies dyspnea Gastrointestinal: Gastrointestinal: Reports as per HPI, Reports no additional gastrointestinal complaints, Reports abdominal pain, Denies nausea and Denies vomiting Genitourinary: Genitourinary: Reports no additional female genitourinary complaints and Reports as per HPI Musculoskeletal: Musculoskeletal: Reports no additional musculoskeletal complaints and Reports as per HPI Integumentary/Breasts: Skin/Breast: Reports system reviewed and no additional complaints, except as docu, Reports as per HPI, Reports erythema, Reports skin pain and Reports skin swelling Neurologic: Reports system reviewed and no additional complaints, except as documented and Reports as per HPI Psychiatric: Psychiatric: Reports no additional psychiatric complaints and Reports as per HPI Endocrine: Endocrine: Reports no additional endocrine complaints and Reports as per HPI Hematologic/Lymphatic: Hematologic/Lymphatic: Reports no additional hematologic/lymphatic complaints and Reports as per HPI Allergic/Immunologic: Allergic/Immunologic: Reports no additional allergic/immunologic complaints and Reports as per HPI PMFSH Past Medical History Medical History Anxiety Asthma GERD (gastroesophageal reflux disease) History of PCOS Migraine Family History Family History Mother Alcohol abuse Depression Grandparent Breast cancer Diabetes mellitus Hypertension Heart disease Social History Social History Smoking status: Former smoker Tobacco type: cigarettes Smoking end date: 08/25/20 Additional smoking assessment comments: also smoked marijuana for morning sickness but quit. Alcohol intake: never Substance use: former Last use: LAST TIME AT 18 WEEKS OF PREG Gender identity (if verbalized by the patient): Female
[2021-06-29 17:09] VITALS: BP 123/72; PULSE 79; RESP 16; O2SAT 100
== END 2021-06-29 19:00 | disposition home or self-care (01) ==
PROVIDERS: Physician Assistant Medical; Emergency Provider Emergency Medicine; PCP Nurse Practitioner Family
DX: O90.2 Hematoma of obstetric wound (principal); O86.01 Infection of obstetric surgical wound, superficial incisional site; O99.345 Other mental disorders complicating the puerperium; F41.9 Anxiety disorder, unspecified; O99.53 Diseases of the respiratory system complicating the puerperium; J45.909 Unspecified asthma, uncomplicated; O99.285 Endocrine, nutritional and metabolic diseases complicating the puerperium; E28.2 Polycystic ovarian syndrome; O99.63 Diseases of the digestive system complicating the puerperium; K21.9 Gastro-esophageal reflux disease without esophagitis; Z87.891 Personal history of nicotine dependence
CPT/HCPCS: 10160; 36415; 74177; 76942; 80048; 85025; 87070; 87075; 87205; 96374; 99284; C1729; J1885; Q9967

== ENCOUNTER 2021-07-25 15:13 | Outpatient (CLI) | payer BC, SELFPAY ==
--- NOTE | ~2021-07-25 | US_ITS ---
US breast LT limited 07/25/2021 15:43 Indication: Mastitis. Procedure: High-resolution ultrasound of the area of palpable concern Comparison: No prior studies for comparison. Findings: There is heterogeneous echotexture throughout the area of palpable concern in the left ghislaine st at the T10-11:00 position with hypoechoic areas in the interstitial spaces, consistent with edema. No discrete walled off fluid collection to suggest abscess. Impression: 1: No discrete walled off fluid collection to suggest abscess. Irregular hypoechoic areas are noted a t the location of palpable concern involving the interstitium, consistent with clinical history of ma stitis. Recommend follow-up ultrasound as clinically indicated. BI-RADS CATEGORY 2 - BENIGN FINDINGS Reviewed, dictated and finalized at location A. Impression: 1: No discrete walled off fluid collection to suggest abscess. Irregular hypoec hoic areas are noted at the location of palpable concern involving the intersti tium, consistent with clinical history of mastitis. Recommend follow-up ultraso und as clinically indicated. BI-RADS CATEGORY 2 - BENIGN FINDINGS
== END 2021-07-25 15:14 | disposition home or self-care (01) ==
LOC: ANHIMG 15:23
PROVIDERS: PCP Nurse Practitioner Family; Visit Provider Obstetrics & Gynecology
DX: N61.1 Abscess of the breast and nipple (principal)
CPT/HCPCS: 76642